=== PATIENT | male | born 1985 | race Caucasian/White ===

== ENCOUNTER 2020-02-16 22:43 | Emergency (ER) | payer OTHER, SELFPAY ==
[2020-02-16 22:46] VITALS: BP 159/89; PULSE 83; TEMP 36.6; O2SAT 98
--- NOTE | 2020-02-16 23:38 | ED_ITS ---
HPI - Wound/Laceration General Chief Complaint: Wound/Laceration Stated Complaint: HAND LACERATION Time Seen by Provider: 02/16/20 23:36 Source: patient Mode of arrival: ambulatory Limitations: no limitations History of Present Illness HPI narrative: This is a 34-year-old male presents after injuring his hand when a glass vase broke and states having a laceration to the 4th MCP on the right dorsum hand as well as superficial injury to the dorsum of the 3rd PIP with no compromise of movement and denies any numbness / tingling. He is unsure of when he received his last tetanus shot. Related Data Allergies Allergy/AdvReac Type Severity Reaction Status Date / Time Penicillins [PENICILLINS] Allergy Unknown UNKNOWN Verified 02/16/20 23:34 Review of Systems Review of Systems: Pertinent positives and negatives as stated in HPI 10 point review of systems is otherwise negative. [facility] Past Medical History Source: nursing notes reviewed Social History Social History Advance Directives: No Advance Directives Information Provided: No Physical Exam Vital Signs: Vital Signs: Last Vital Signs Temp 98.7 F 02/16/20 23:48 Pulse 71 02/16/20 23:48 Resp 18 02/16/20 23:48 BP 131/79 02/16/20 23:48 Pulse Ox 96 02/16/20 23:48 Body Mass Index 22.2 VITAL SIGNS: Reviewed. GENERAL: Well developed, well nourished, in no acute distress. HEAD: Normocephalic/atraumatic, EYES: PERRLA, EOMI intact without pain, no nystagmus/pallor/icterus noted EARS: Ext canals without abnormality, TMs non-bulging and non-erythematous NOSE: Nares patent bilateral OROPHARYNX: no oral lesions noted, posterior pharynx clear and non-erythematous without noted tonsillar enlargement/erythema/exudates NECK: Supple, no adenopathy LUNGS: Normal breath sounds. No adventitious sounds or accessory muscle use. SpO2<98> CARDIOVASCULAR: Regular rate and rhythm without noted murmurs, no JVD or lower extremity edema. ABDOMEN: Soft, non-tender, non-distended with bowel sounds. No rigidity. No guarding. No palpable masses or hernias noted MUSCULOSKELETAL: No tenderness, deformities, or effusions noted on gross inspection. EXTREMITIES: No cyanosis, clubbing or edema; Half best laceration to the right 4th MCP with good hemostasis and full range of motion, superficial abrasion to the dorsum of the 3rd phalanx with full range of motion, capillary refill is less than 3 seconds. SKIN: Inspection of the skin reveals no rashes, ulcerations, jaundice, pallor, or petechiae. NEUROLOGIC: Alert and oriented x 4. Strength and sensation to light touch were grossly intact x 4. Course Course Course Narrative: This is a 34-year-old male with history and clinical presentation consistent with laceration and non tendinous injury to the 3rd phalanx and will receive a tetanus as well as laceration repair. Abrasion to 3rd digit with good hemostasis and laceration of the 4th MCP repaired without complications please see the details of the procedure note. Patient received tetanus. Procedures Laceration Laceration 1: Site: hand Side (If applicable): right Size (cm): 2 Description: flap Depth: simple, single layer Local Anesthetic: lidocaine 2% Amount of anesthesia used (mL): 1 Pre-repair: wound explored and irrigated extensively Skin layer closed with: nylon Size (cm): 4-0 Number of sutures: 3 Technique: simple, interrupted Discharge Plan Discharge Clinical Impression: Laceration, Abrasion Patient Disposition: Home, Self-Care Instructions: Laceration (ED), Care For Your Stitches (ED), Abrasion (ED) Additional Instructions: 1. You may cleanse the laceration and the abrasion site with soap and water after 24 hours and then you should reapply antibiotic ointment ( that is available [id number] at any drug store) and then cover with a Band-Aid. 2. please return to the emergency department or your primary care provider in 7 days for the removal of the sutures. 3. you may use [id number] Tylenol or ibuprofen as needed for pain control. The patient and/or family acknowledge understanding of results (as applicable), diagnosis, treatment plan, need for follow up, and symptoms that should prompt a return to the emergency room. Referrals: Physician,None [Primary Care Provider] - 2 days ( Suture removal)
[2020-02-16 23:48] VITALS: BP 131/79; PULSE 71; RESP 18; TEMP 37.1; O2SAT 96; BMI 22.2
[2020-02-17] MEDS: Lidocaine HCl 2 % MPF 5 ML VIAL INFILTRATI (00:06)
--- NOTE | 2020-02-17 00:34 | PC.NURSE ---
PT TOLERATED BEDSIDE WOUND CARE AND SUTURES BY PROVIDER. BACITRACIN PLACED OVER SUTURES, REQUESTED BY PROVIDER.
== END 2020-02-17 01:03 | disposition home or self-care (01) ==
PROVIDERS: Emergency Provider Student in an Organized Health Care Education/Training Program
DX: S61.411A Laceration without foreign body of right hand, initial encounter (principal); S60.511A Abrasion of right hand, initial encounter; M79.641 Pain in right hand; W25.XXXA Contact with sharp glass, initial encounter; Y93.9 Activity, unspecified; Y92.000 Kitchen of unspecified non-institutional (private) residence as the place of occurrence of the external cause; Y99.9 Unspecified external cause status; Z23 Encounter for immunization
CPT/HCPCS: 12001; 90471; 90715; 99283; 99284

== ENCOUNTER 2021-08-03 16:18 | Emergency (ER) | payer MEDICAID, SELFPAY ==
[2021-08-03 16:46] VITALS: BP 146/94; BP 154/90; PULSE 82; PULSE 93; RESP 18; TEMP 37; O2SAT 98; BMI 22.2
[2021-08-03 16:59] LABS: Basophils Percent Auto 0.2 % (0-2); Eosinophils Percent Auto 0.4 % (0-4); Hematocrit 42.5 % (42.0-52.0); Hemoglobin 13.8 g/dl (14.0-18.0); Imm Gran Abs Auto 0.04 X10*3/uL (0.00-0.03); Imm Gran Pct Auto 0.4 % (0.0-0.4); Lymphocytes Absolute Auto 1.1 X10*3/uL (1.2-4.9); Lymphocytes Percent Auto 12.2 % (20-40); MANUAL DIFF FLAG NO; Mean Corpuscular HGB Conc 32.5 g/dl (31.0-36.0); Mean Corpuscular Volume 83.2 fL (80.0-98.0); Mean Platelet Volume 9.7 fL (9.4-12.4); Monocytes Absolute Auto 0.8 X10*3/uL (0.1-1.2); Monocytes Percent Auto 8.5 % (2-11); Neutrophils Percent Auto 78.3 % (45-73); Platelet Count 326 X10*3/uL (160-400); Red Blood Count 5.11 X10*6/uL (4.60-5.80); Red Cell Distribution Width 13.8 % (11.0-16.0); White Blood Count 8.9 X10*3/uL (4.8-10.8)
[2021-08-03 17:27] LABS: Anion Gap 14 (12-20); Blood Urea Nitrogen 12 mg/dL (9-16); Calcium 9.4 mg/dL (8.4-10.2); Carbon Dioxide 26 mmol/L (22-29); Chloride 105 mmol/L (96-108); Creatinine Clr Calc Pharmacy 99.5; Estimated Glomerular Filt Rate > 60; Glucose Random 114 mg/dL (60-115); Potassium 4.1 mmol/L (3.3-5.1); Sodium 141 mmol/L (135-145)
== END 2021-08-03 18:58 | disposition left against medical advice (07) ==
PROVIDERS: Emergency Provider Emergency Medicine
DX: G43.909 Migraine, unspecified, not intractable, without status migrainosus (principal); M54.2 Cervicalgia; Z79.899 Other long term (current) drug therapy
CPT/HCPCS: 36415; 80048; 85025; 99282; 99283

== ENCOUNTER 2023-06-11 10:24 | Emergency (ER) | payer MEDICAID, SELFPAY ==
--- NOTE | ~2023-06-11 | XR_ITS ---
EXAMINATION: XR FINGER, LEFT CLINICAL INFORMATION: Left thumb laceration swelling and pain COMPARISON: None available. TECHNIQUE: 4 views of the left thumb. FINDINGS: No acute visible fracture or dislocation. Joint spaces and alignment are maintained. Soft tissues are unremarkable with no radiopaque densities identified. XR/XR finger LT min 2V IMPRESSION: 1. No acute visible fracture or dislocation. 2. Soft tissues are unremarkable with no radiopaque densities identified.
[2023-06-11 10:29] VITALS: BP 150/92; PULSE 86; O2SAT 97
[2023-06-11 10:31] VITALS: BP 148/98; PULSE 80; RESP 18; TEMP 36.6; O2SAT 98; BMI 22.7
--- NOTE | 2023-06-11 13:50 | ED.EXTPRO ---
HPI - Extremity Problem General Chief complaint: Extremity Injury, Upper Stated complaint: FINGER PROBLEM Time Seen by Provider: 06/11/23 13:43 Source: patient and RN notes reviewed Mode of arrival: ambulatory Limitations: no limitations History of Present Illness HPI Narrative: This is a 37-year-old male, with no known medical problems, presenting to the emergency department with complaints of left thumb pain, redness, and swelling for the last several days. Patient reports that he cut his finger on an unknown object several days ago and has had increased redness, swelling, and pain to the area. Denies any fevers, chills, nausea, vomiting or diarrhea. Denies any chest pain or shortness a breath. Denies any IV drug use. He does endorse intranasal drug use. No other complaints or concerns at this time. MD Complaint: extremity pain and extremity swelling Onset (ago): day(s) Pain Consistency: constant Location: left and upper extremity Quality: aching Radiation: none Relieving factors: nothing Exacerbating factors: nothing Associated symptoms: denies other symptoms Related Data Previous Rx's Medication Instructions Recorded cephalexin 250 mg capsule 250 mg PO QID 7 days #28 caps 06/11/23 doxycycline hyclate 100 mg capsule 100 mg PO BID 7 days #14 caps 06/11/23 Allergies Allergy/AdvReac Type Severity Reaction Status Date / Time Penicillins [PENICILLINS] Allergy Unknown UNKNOWN Verified 06/11/23 10:31 Review of Systems Review of Systems: Yes all other systems are reviewed and are negative Constitutional: Constitutional: Reports as per [facility] Past Medical History Attestation statement: The following information was validated with the patient. Social History Social History Advance Directives: No Advance Directives Information Provided: No Physical Exam Vital Signs: Vital Signs: Last Vital Signs Temp 98 F 06/11/23 10:31 Pulse 80 06/11/23 10:31 Resp 18 06/11/23 10:31 BP 148/98 H 06/11/23 10:31 Pulse Ox 98 06/11/23 10:31 O2 Del Method Room Air 06/11/23 10:31 BMI result Body Mass Index 22.7 Const: General: cooperative, comfortable and no acute distress Orientation/consciousness: patient oriented x3 Limitations: no limitations HEENT: Head: Yes normal to inspection, Yes normocephalic and Yes atraumatic Ears: hearing grossly normal bilaterally General nose exam: Normal external nose present Face and sinus: Yes normal facial exam Mouth: Normal oral and palatal mucosa present, oropharynx normal and moist mucous membranes Throat: Yes posterior oropharynx normal Eyes: General: appearance normal, both eyes and all related structures Eyelids: Yes eyelids normal Conjunctivae: conjunctivae normal Sclerae: sclerae normal Pupils: Equal, round and reactive pupils present EOM: EOMs intact bilaterally Neck: Neck: Yes normal visual inspection, Yes full ROM and Yes no lymphadenopathy Lymphatic: no lymphadenopathy noted Chest: Chest palpation & inspection: normal inspection of the chest Resp: Effort & Inspection: normal respiratory effort and able to speak in complete sentences Cardio: Rate: regular rate Rhythm: regular rhythm Heart sounds: S1 normal heart sound present and S2 normal heart sound present GI: Inspection: Yes normal to inspection Skin: General skin exam: no rashes or lesions noted Trauma: no lacerations or abrasions Wounds: no wounds Neuro: General: patient oriented x3 and moves all extremities Cranial nerves: Yes Equal, round and reactive pupils present Extrem: Other: Left thumb with erythema and edema noted. Tenderness to palpation, no fluctuance or induration. Able to flex and extend at the DIP and PIP. Strong radial pulse, able to oppose thumb to all digits. Healed superficial abrasion noted to the distal tip of the thumb. General: Yes normal to inspection Right upper extremity: normal to inspection Left upper extremity: normal to inspection Right lower extremity: normal to inspection Left lower extremity: normal to inspection Medical Decision Making Medical Decision Making MDM Narrative: This is a 37-year-old male presenting to the emergency department with complaints of left finger pain, swelling x several days. Arrival, patient mildly hypertensive at 148/98. Left thumb appears to be red hot and swollen, patient is afebrile, nontoxic appearing, able to flex and extend at all joints of the thumb. Differential diagnoses include cellulitis, septic arthritis, gouty arthritis, foreign body, laceration. Discussed with patient that his fingers infected, and knees antibiotics. Patient will be placed on double coverage. Educated the importance of soaking finger multiple times per day and completing the full course. Given strict return precautions. He understands and agrees with plan. Given 1st dose of antibiotics and ibuprofen in department. Patient stable for discharge Differential Diagnosis Differential Diagnoses: The differential diagnosis associated with the presentation includes See above Radiology Impression Discussion of test interpretation with radiology: I have reviewed the radiologist's reading. Radiologist Impression: EXAMINATION: XR FINGER, LEFT CLINICAL INFORMATION: Left thumb laceration swelling and pain COMPARISON: None available. TECHNIQUE: 4 views of the left thumb. FINDINGS: No acute visible fracture or dislocation. Joint spaces and alignment are maintained. Soft tissues are unremarkable with no radiopaque densities identified. XR/XR finger LT min 2V IMPRESSION: 1. No acute visible fracture or dislocation. 2. Soft tissues are unremarkable with no radiopaque densities identified. Dictated By: Renetta Garcia MD Discharge Plan Discharge Clinical Impression: Cellulitis of finger of left hand Patient Disposition: Home, Self-Care Instructions: Cellulitis (ED) Additional Instructions: Your seen in the emergency department due to left thumb pain. Your thumb is infected. You need to take prescribed antibiotic as directed. Soaked finger multiple times a day in warm soapy water. Finish the entire course of the antibiotic even if you are feeling better. Keep area clean and dry. Gentle range of motion is very important. You may alternate between ibuprofen and Tylenol as needed for pain and symptoms. If any new or worsening symptoms occur including but not limited to worsening pain, worsening range of motion, worsening swelling, redness, fevers, chills, please return for re-evaluation Prescriptions: New cephalexin 250 mg capsule 250 mg PO QID 7 Days Qty: 28 0RF doxycycline hyclate 100 mg capsule 100 mg PO BID 7 Days Qty: 14 0RF
[2023-06-11] MEDS: Ibuprofen 600 MG TABLET PO (14:14)
[2023-06-11] MEDS: Doxycycline Monohydrate 100 MG CAPSULE PO (14:15)
[2023-06-11] MEDS: cephALEXin 250 MG CAPSULE PO (14:28)
[2023-06-11 14:57] VITALS: BP 157/76; PULSE 81; RESP 18; TEMP 36.6; O2SAT 99
== END 2023-06-11 15:01 | disposition home or self-care (01) ==
PROVIDERS: Emergency Provider Student in an Organized Health Care Education/Training Program
DX: L03.114 Cellulitis of left upper limb (principal); M79.642 Pain in left hand
CPT/HCPCS: 73140; 99283; 99284